=== PATIENT | male | born 1980 | race Caucasian/White ===

== ENCOUNTER 2019-02-23 17:29 | Emergency (ER) | payer SELFPAY ==
[2019-02-23 17:33] VITALS: BP 157/105; PULSE 94; RESP 14; TEMP 36.6; O2SAT 94
--- NOTE | 2019-02-23 17:54 | W.ED.GENAD ---
Discharge Plan Disposition Patient Disposition: HOME Condition: Improving Discharge Details Chief Complaint: RashLesion Clinical Impression: Folliculitis Primary Care Provider: Candelaria Flowers ED Provider: Mariano Badillo Home Meds and New Rx's Prescriptions: New cephalexin 500 mg capsule 500 mg PO TID 7 Days Qty: 21 RF: 0 Continued lisinopril 5 MG tablet 5 mg PO DAILY RF: 0 metformin 500 MG tablet extended release 24 hr 500 mg PO BID RF: 0 acetaminophen [Tylenol Extra Strength] 500 mg Tablet 500 mg PO Q6H PRNRF: 0 ibuprofen 200 mg Tablet 800 mg PO QID PRNRF: 0 Discharge Instructions Instructions: Folliculitis (ED) Additional Instructions: Leave dressing in place overnight as tolerated. May use gentle soap and water cleanse in the morning and pat dry. Please take antibiotics as prescribed. May apply warm, moist heat to area to speed healing. Return for recurrent swelling, persistent drainage, or any other acute concerns Medical Decision Making 38-year-old male with diabetic presents with left superior scalp swelling with drainage that has been going on for 2 days time. He manipulated it at home. Unclear if this is a partially resolved sebaceous cyst versus a folliculitis with abscess. Patient consented as to risks and benefits of incision and drainage, prepped and draped in standard sterile fashion, anesthetized and incised with an 11 blade with production of 1.5 cc of purulent fluid. We will place him on a course of antibiotics given his diabetes. He understands homecare as well as return precautions. HPI General Mode of arrival: ambulatory. Date/Time Provider Initiated Documentation: 02/23/19 17:31. Limitations to Documentation: no limitations. Information obtained by: patient. History of Present Illness 38 year old M presents to the emergency department with the chief complaint of Left superior scalp infection with drainage, described as mild, Quality is described as aching and constant, and is localized to the head and left. Patient neck. Patient started experiencing this day(s) and it has been intermittent. No relieving factors improve symptom(s), No exacerbating factors reported . Patient notes other (Purulent drainage. Manipulated at home by pain). Patient did receive the following treatments prior to arrival, none Related Data Home Medications Medication Instructions Recorded Confirmed lisinopril 5 mg PO DAILY 04/02/16 02/23/19 metformin 500 mg PO BID 08/12/16 02/23/19 acetaminophen [Tylenol Extra 500 mg PO Q6H PRN 02/23/19 02/23/19 Strength] cephalexin 500 mg PO TID 7 Days #21 cap 02/23/19 ibuprofen 800 mg PO QID PRN 02/23/19 02/23/19 Previous Rx's Medication Instructions Recorded cephalexin 500 mg PO TID 7 Days #21 cap 02/23/19 Allergies Allergy/AdvReac Type Severity Reaction Status Date / Time No Known Allergies Allergy Unverified 02/23/19 17:37 General Stated Complaint: RashLesion MOHAMUD: 5 Review of Systems Review of Systems No headache, no fall. No change to medications. 6 systems reviewed and otherwise negative [facility] Social History Smoking/Tobacco Use Status: Never Drug use: Never Do you feel safe at home: Yes Do you feel safe in your relationship?: Yes Exam Narrative Exam Narrative: GEN: awake, alert, oriented 3. Pleasant, well groomed, interactive. HEAD: Normocephalic, atraumatic. The left superior inferior portion of the posterior scalp has a approximately 1 cm square area of raised fluctuant erythema with minimal drainage. ENT: Mucous membranes moist, oropharynx unremarkable, External ear exam unremarkable EYES: PERRL, EOMI NECK: Full ROM, no AMILCAR, no menigismus EXT: Full ROM, no edema, no rash Neuro: Grossly normal neurologic exam, conversant, interactive. Psych: Speech fluent, thoughts congruent, affect normal Course Vital Signs Temperature 36.6 C 02/23/19 17:33 Pulse 94 H 02/23/19 17:33 Respiratory Rate 14 02/23/19 17:33 Blood Pressure 157/105 H 02/23/19 17:33 Pulse Oximetry 94 L 02/23/19 17:33 Temperature 36.6 C 02/23/19 17:33 Pulse 94 H 02/23/19 17:33 Respiratory Rate 14 02/23/19 17:33 Respiratory Effort Non-Labored 02/23/19 17:36 Blood Pressure 157/105 H 02/23/19 17:33 Blood Pressure Position Sitting 02/23/19 17:33 Pulse Oximetry 94 L 02/23/19 17:33 Oxygen Delivery Method Room Air 02/23/19 17:33 Oxygen Flow Rate 0 02/23/19 17:33 Pain Level 3 02/23/19 17:33 Procedures Abscess I/D Site: Scalp Side (if applicable): Left Local Anesthetic: Lidocaine 1% Amount of anesthesia used (mL): 2 Technique: Incised with #11 Blade Amount of fluid expressed (mL): 1 Irrigation: Yes Packing used?: None
--- NOTE | 2019-02-23 17:58 | ED.GENADUL_ITS ---
Discharge Plan Disposition Patient Disposition: HOME Condition: Improving Discharge Details Chief Complaint: RashLesion Clinical Impression: Folliculitis Primary Care Provider: Candelaria Floewrs ED Provider: Mariano Badillo Home Meds and New Rx's Prescriptions: New cephalexin 500 mg capsule 500 mg PO TID 7 Days Qty: 21 RF: 0 Continued lisinopril 5 MG tablet 5 mg PO DAILY RF: 0 metformin 500 MG tablet extended release 24 hr 500 mg PO BID RF: 0 acetaminophen [Tylenol Extra Strength] 500 mg Tablet 500 mg PO Q6H PRNRF: 0 ibuprofen 200 mg Tablet 800 mg PO QID PRNRF: 0 Discharge Instructions Instructions: Folliculitis (ED) Additional Instructions: Leave dressing in place overnight as tolerated. May use gentle soap and water cleanse in the morning and pat dry. Please take antibiotics as prescribed. May apply warm, moist heat to area to speed healing. Return for recurrent swelling, persistent drainage, or any other acute concerns Medical Decision Making 38-year-old male with diabetic presents with left superior scalp swelling with drainage that has been going on for 2 days time. He manipulated it at home. Unclear if this is a partially resolved sebaceous cyst versus a folliculitis with abscess. Patient consented as to risks and benefits of incision and drainage, prepped and draped in standard sterile fashion, anesthetized and incis ed with an 11 blade with production of 1.5 cc of purulent fluid. We will place him on a course of antibiotics given his diabetes. He understands homecare as well as return precautions. HPI General Mode of arrival: ambulatory . Date/Time Provider Initiated Documentation: 02/23/19 17:31 . Limitations to Documentation: no limitations . Information obtained by: patient . History of Present Illness 38 year old M presents to the emergency department with the chief complaint of Left superior scalp infection with drainage, described as mild, Quality is described as aching and constant, and is localized to the head and left. Patient neck. Patient started experiencing this day(s) and it has been intermittent. No relieving factors improve symptom(s), No exacerbating factors reported . Patient notes other (Purulent drainage. Manipulated at home by pain). Patient did receive the following treatments prior to arrival, none Related Data Home Medications Medication Instructions Recorded Confirmed lisinopril 5 mg PO DAILY 04/02/16 02/23/19 metformin 500 mg PO BID 08/12/16 02/23/19 acetaminophen [Tylenol Extra 500 mg PO Q6H PRN 02/23/19 02/23/19 Strength] cephalexin 500 mg PO TID 7 Days #21 cap 02/23/19 ibuprofen 800 mg PO QID PRN 02/23/19 02/23/19 Previous Rx's Medication Instructions Recorded cephalexin 500 mg PO TID 7 Days #21 cap 02/23/19 Allergies Allergy/AdvReac Type Severity Reaction Status Date / Time No Known Allergies Allergy Unverified 02/23/19 17:37 General Stated Complaint: RashLesion MOHAMUD: 5 Review of Systems Review of Systems No headache, no fall. No change to medications. 6 systems reviewed and otherwise negative [facility] Social History Smoking/Tobacco Use Status: Never Drug use: Never Do you feel safe at home: Yes Do you feel safe in your relationship?: Yes Exam Narrative Exam Narrative: GEN: awake, alert, oriented 3. Pleasant, well groomed, interactive. HEAD: Normocephalic, atraumatic. The left superior inferior portion of the posterior scalp has a approximately 1 cm square area of raised fluctuant erythema with minimal drainage. ENT: Mucous membranes moist, oropharynx unremarkable, External ear exam unremarkable EYES: PERRL, EOMI NECK: Full ROM, no AMILCAR, no menigismus EXT: Full ROM, no edema, no rash Neuro: Grossly normal neurologic exam, conversant, interactive. Psych: Speech fluent, thoughts congruent, affect normal Course Vital Signs Temperature 36.6 C 02/23/19 17:33 Pulse 94 H 02/23/19 17:33 Respiratory Rate 14 02/23/19 17:33 Blood Pressure 157/105 H 02/23/19 17:33 Pulse Oximetry 94 L 02/23/19 17:33 Temperature 36.6 C 02/23/19 17:33 Pulse 94 H 02/23/19 17:33 Respiratory Rate 14 02/23/19 17:33 Respiratory Effort Non-Labored 02/23/19 17:36 Blood Pressure 157/105 H 02/23/19 17:33 Blood Pressure Position Sitting 02/23/19 17:33 Pulse Oximetry 94 L 02/23/19 17:33 Oxygen Delivery Method Room Air 02/23/19 17:33 Oxygen Flow Rate 0 02/23/19 17:33 Pain Level 3 02/23/19 17:33 Procedures Abscess I/D Site: Scalp Side (if applicable): Left Local Anesthetic: Lidocaine 1% Amount of anesthesia used (mL): 2 Technique: Incised with #11 Blade Amount of fluid expressed (mL): 1 Irrigation: Yes Packing used?: None
== END 2019-02-23 18:03 | disposition home or self-care (01) ==
LOC: ER 18:05
PROVIDERS: Emergency Provider Emergency Medicine; PCP Nurse Practitioner Family
DX: L73.9 Follicular disorder, unspecified (principal); E11.9 Type 2 diabetes mellitus without complications; Z79.84 Long term (current) use of oral hypoglycemic drugs
CPT/HCPCS: 99283

== ENCOUNTER 2019-09-10 09:03 | Outpatient (REF) | payer BC, SELFPAY ==
[2019-09-10 13:19] LABS: Abs Immature Grans 0.01 k/cumm (0.0-0.09); Absolute Basophil Count 0.02 k/cumm (0.0-0.2); Absolute Eosinophil Count 0.09 k/cumm (0.0-0.7); Absolute Lymphocyte Count 2.68 k/cumm (1.2-3.4); Absolute Monocyte Count 0.66 k/cumm (0.11-0.7); Absolute Neutrophil Count 3.15 k/cumm (1.2-6.7); Basophils % 0.3; Eosinophils % 1.4; HCT 44.1 % (40.0-50.0); HGB 15.2 g/dL (13.5-17.5); Immature Grans % 0.2; Lymphocytes % 40.5; Mean Corp. HGB Concentration 34.5 g/dL (32.0-36.0); Mean Corpuscular Volume 84.2 fL (80-95); Mean Platelet Volume 10.9 fL (8.0-11.0); Neutrophils % 47.6; Platelet Count 243 x1000/uL (130-400); RBC 5.24 m/cumm (4.50-6.00); RBC Distribution Width 12.5 % (11.8-14.1); White Blood Cell Count 6.61 k/cumm (4.4-10.8)
[2019-09-10 13:33] LABS: ALT 70 U/L (16-63); AST 25 U/L (15-37); Albumin 3.5 g/dL (3.4-5.0); Alkaline Phosphatase 212 U/L (46-116); Anion Gap 9.2 mmol/L (3-11); BUN 13 mg/dL (7-18); Bilirubin, Total 0.4 mg/dL (0.2-1.0); CO2 26.8 mmol/L (21.0-32.0); CREATININE 0.67 mg/dL (0.70-1.30); Calcium 9.2 mg/dL (8.5-10.1); Chloride 103 mmol/L (98-107); Cholesterol 224 mg/dL (50-200); Glucose 329 mg/dL (70-100); HDL Cholesterol 33 mg/dL (40-60); Potassium 4.7 mmol/L (3.5-5.1); Sodium 139 mmol/L (136-145); Total Protein 7.6 g/dL (6.4-8.2); Triglyceride 443 mg/dL (30-150)
[2019-09-10 13:57] LABS: LDL CHOLESTEROL 230 mg/dL (<100)
[2019-09-10 14:21] LABS: PROTEIN 20.7 mg/dL
[2019-09-10 14:24] LABS: Microalb ug/mg Crea 329.7 ug/mg Cr
[2019-09-10 14:35] LABS: COMMENT (LAB VIEW ONLY) 34.59 mg/dL; Prot/Crea Ur Ratio 0.59
== END 2019-09-10 09:23 ==
LOC: NCHCN 09:03
PROVIDERS: PCP Nurse Practitioner Family; Visit Provider Nurse Practitioner Family
DX: E11.9 Type 2 diabetes mellitus without complications (principal); I10 Essential (primary) hypertension; S01.00XA Unspecified open wound of scalp, initial encounter
CPT/HCPCS: 80053; 80061; 83721; 87077; 82043; 82565; 82570; 84156; 85025; 87070; 87186; 87205

== ENCOUNTER 2019-10-11 08:22 | Emergency (ER) | payer BC, SELFPAY ==
[2019-10-11 08:24] VITALS: BP 140/94; PULSE 92; RESP 18; TEMP 36.4; O2SAT 95
--- NOTE | 2019-10-11 09:21 | W.ED.GENAD ---
Discharge Plan Disposition Patient Disposition: HOME Condition: Stable Discharge Details Chief Complaint: Nk/Back Pain Clinical Impression: Neck pain Primary Care Provider: Augusto Pillai ED Provider: Sarita Ross Home Meds and New Rx's Prescriptions: Continued lisinopril 5 MG tablet 5 mg PO DAILY RF: 0 metformin 500 MG tablet extended release 24 hr 500 mg PO BID RF: 0 atorvastatin [Lipitor] 80 mg Tablet 80 mg PO QHS RF: 0 Lantus U-100 Insulin 100 unit/mL Solution 42 unit SUBCUT QHS RF: 0 acetaminophen [Tylenol Extra Strength] 500 mg Tablet 500 mg PO Q6H PRNRF: 0 ibuprofen 200 mg Tablet 800 mg PO QID PRNRF: 0 Discharge Instructions Instructions: Lymphadenopathy (ED), Adenitis (ED), Neck Pain (ED) Additional Instructions: Please return to the emergency department if you develop any new or worsening symptoms or if you become otherwise concerned. It is extremely important that you call as soon as possible to make an appointment to be seen in follow-up for this visit by your primary care doctor. Referrals: Augusto Pillai, CHIEF INVESTIGATOR [Primary Care Provider] - Discharge Data Discharge Date/Time-TO BE ENTERED AT DEPARTURE: 10/11/19 09:59 Medical Decision Making Ryan Pérez is a 39-year-old man with history of hypertension, insulin dependent diabetes who presented to the emergency department with painful area of his neck since yesterday. On exam patient is well and nontoxic-appearing with well-circumscribed 2 x 2 centimeter mass to his left anterior neck. [id number] bedside ultrasound shows likely lymph node, no fluid collection. Exam/history is not consistent with abscess, impending airway compromise, life-threatening metabolic/electrolyte derangement, other acute emergent life-threatening process. We obtained a fingerstick blood sugar level of 250, which patient reports has been his typical blood sugar over the past month. Unclear etiology of enlarged lymph node. Plan for outpatient follow-up. I had a lengthy discussion with the patient regarding return to emergency department precautions, home care, and importance of outpatient follow-up with his primary care doctor. Patient verbalized understanding of the plan and was amenable. All questions were answered. Patient was discharged home with clear plan for outpatient follow-up. Medical Records Medical records reviewed: Yes I reviewed the patient's medical records. Lab Data Lab results reviewed: Yes I reviewed the patient's lab results. HPI General Mode of arrival: ambulatory. Date/Time Provider Initiated Documentation: 10/11/19 09:21. Limitations to Documentation: no limitations. Information obtained by: patient, RN notes reviewed and old records reviewed. HPI Narrative: Ryan Pérez is a 39 y/o man with history of insulin dependent diabetes, hypertension presenting to the emergency department with anterior neck pain. Patient reports that he noticed yesterday morning that the left lower front area of his neck was painful when he held his neck in certain positions. 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 Patient denies any other pain, fevers, cough, shortness of breath, vomiting, diarrhea, rash. Feels otherwise well in his usual state of health. No difficulty or pain with swallowing. Has been eating and drinking as usual. No other recent illness. Denies any exposure to cats/kittens in the past few months. Related Data Home Medications Medication Instructions Recorded Confirmed lisinopril 5 mg PO DAILY 04/02/16 10/11/19 metformin 500 mg PO BID 08/12/16 10/11/19 acetaminophen [Tylenol Extra 500 mg PO Q6H PRN 02/23/19 10/11/19 Strength] ibuprofen 800 mg PO QID PRN 02/23/19 10/11/19 Lantus U-100 Insulin 42 unit SUBCUT QHS 10/11/19 10/11/19 atorvastatin [Lipitor] 80 mg PO QHS 10/11/19 10/11/19 Allergies Allergy/AdvReac Type Severity Reaction Status Date / Time No Known Allergies Allergy Unverified 10/11/19 08:28 General Stated Complaint: Nk/Back Pain MOHAMUD: 4 Review of Systems Narrative: Constitutional: denies fevers Eyes: denies eye pain ENT: denies facial pain, dental pain, sore throat, difficulty swallowing, painful swallowing, reports neck pain as per HPI Cardiovascular: denies chest pain Respiratory: denies SOB, cough GI: denies abdominal pain, vomiting, diarrhea : denies flank pain MSK: denies back pain, arthralgias, myalgias Skin: denies rash Neuro: denies headaches, numbness, weakness [facility] Medical History Diabetes (Chronic) High blood pressure (Chronic) High cholesterol (Chronic) Social History Smoking/Tobacco Use Status: Never Alcohol Intake: never Drug use: Never Substance use type: does not use Do you feel safe at home: Yes Do you feel safe in your relationship?: Yes Exam Narrative Exam Narrative: Constitutional: well and [id number], pleasant, conversing normally HENT: head atraumatic/normocephalic/normal inspection, mucous membranes moist, clear oropharynx, no OP lesion or edema, uvula midline Eyes: conjunctiva normal, sclera normal, pupils 3mm b/l Neck: no stridor, normal ROM, trachea midline, normal inspection of the neck, mild fullness and tenderness to palpation focally in 2 x 2 centimeter area lower mid anterior neck, approximately 2 cm superior to the clavicle, no overlying skin changes, no fluctuance, no crepitus, no supraclavicular lymphadenopathy, no other lymphadenopathy of the anterior or posterior neck Resp: normal work of breathing, LCTAB Cardio: normal rate, normal rhythm, no murmur appreciated GI: abdomen soft, non-tender, non-distended Back: normal inspection, no rash Skin: warm, dry, normal color, no rash Neuro: alert, not altered, grossly non-focal, normal tone Ext: no edema Psych: normal mood, normal affect, normal behavior Course Vital Signs Vital signs: Vital Signs Temperature 36.4 C L 10/11/19 08:24 Pulse 92 H 10/11/19 08:24 Respiratory Rate 18 10/11/19 08:24 Blood Pressure 140/94 H 10/11/19 08:24 Pulse Oximetry 95 10/11/19 08:24 Temperature 36.4 C L 10/11/19 08:24 Temperature Source Skin 10/11/19 08:24 Pulse 92 H 10/11/19 08:24 Respiratory Rate 18 10/11/19 08:24 Respiratory Effort Non-Labored 10/11/19 08:31 Blood Pressure 140/94 H 10/11/19 08:24 Blood Pressure Position Sitting 10/11/19 08:24 Pulse Oximetry 95 10/11/19 08:24 Oxygen Delivery Method Room Air 10/11/19 08:24 Oxygen Flow Rate 0 10/11/19 08:24 Pain Level 3 10/11/19 08:35 Comment 10/11/19 08:24
== END 2019-10-11 09:59 | disposition home or self-care (01) ==
PROVIDERS: Emergency Provider Student in an Organized Health Care Education/Training Program; PCP Nurse Practitioner Family
DX: M54.2 Cervicalgia (principal); R59.0 Localized enlarged lymph nodes; E11.9 Type 2 diabetes mellitus without complications; Z79.4 Long term (current) use of insulin; I10 Essential (primary) hypertension
CPT/HCPCS: 36416; 82962; 99282; 99283

== ENCOUNTER 2020-08-10 12:18 | Outpatient (REF) | payer MEDICAID, SELFPAY ==
[2020-08-10 19:00] LABS: Anion Gap 8.8 mmol/L (3-11); BUN 17 mg/dL (7-18); CO2 26.2 mmol/L (21.0-32.0); CREATININE 0.73 mg/dL (0.70-1.30); Calcium 9.1 mg/dL (8.5-10.1); Calculated LDL 63 mg/dL (<100); Chloride 103 mmol/L (98-107); Cholesterol 126 mg/dL (<200); Glucose 285 mg/dL (74-106); HDL Cholesterol 35 mg/dL (40-60); Potassium 4.7 mmol/L (3.5-5.1); Sodium 138 mmol/L (136-145); Triglyceride 142 mg/dL (<150)
[2020-08-10 19:05] LABS: COMMENT (LAB VIEW ONLY) 245.22 mg/dL
[2020-08-10 19:19] LABS: Microalb ug/mg Crea 77.8 ug/mg Cr
== END 2020-08-10 12:38 ==
LOC: NCHCN 12:18
PROVIDERS: PCP Nurse Practitioner Family; Visit Provider Nurse Practitioner Family
DX: I10 Essential (primary) hypertension (principal); E11.9 Type 2 diabetes mellitus without complications; E78.6 Lipoprotein deficiency
CPT/HCPCS: 80048; 80061; 82043; 82570

== ENCOUNTER 2020-09-14 10:44 | Outpatient (REF) | payer MEDICAID, SELFPAY | END 2020-09-14 11:04 | LOC: NCHCN 10:44 | PROVIDERS: PCP Nurse Practitioner Family; Visit Provider Nurse Practitioner Family | DX: L98.9 Disorder of the skin and subcutaneous tissue, unspecified (principal) | CPT/HCPCS: 87077; 87070; 87186; 87205 ==

== ENCOUNTER 2021-08-31 07:52 | Emergency (ER) | payer MEDICAID, SELFPAY ==
[2021-08-31 07:55] VITALS: BP 164/107; PULSE 94; RESP 18; TEMP 36; O2SAT 96
--- NOTE | 2021-08-31 08:20 | NUR.NOTE ---
Nursing Note: Referral faxed to [facility] for follow up of pre septal cellulitis, diabetes poorly controlled, within 1 week. Ashlie Urbano
--- NOTE | 2021-08-31 08:24 | W.ED.GENAD ---
Discharge Plan Disposition Patient Disposition: HOME Condition: Stable Discharge Details Clinical Impression: Hordeolum, Cellulitis Primary Care Provider: Augusto Pillai ED Provider: Mitra Marsh Home Meds and New Rx's Prescriptions: New cephalexin 500 mg capsule 500 mg PO Q6H 10 Days Qty: 40 RF: 0 Continued lisinopril 5 MG tablet 5 mg PO DAILY RF: 0 metformin 500 MG tablet extended release 24 hr 500 mg PO BID RF: 0 atorvastatin [Lipitor] 80 mg Tablet 80 mg PO QHS RF: 0 Lantus U-100 Insulin 100 unit/mL Solution 42 unit SUBCUT QHS RF: 0 acetaminophen [Tylenol Extra Strength] 500 mg Tablet 500 mg PO Q6H PRNRF: 0 ibuprofen 200 mg Tablet 800 mg PO QID PRNRF: 0 Discharge Instructions Instructions: Cellulitis (ED), Stye (ED) Additional Instructions: Watch your diet for the next several days and check your blood sugar at least once daily Your blood sugar was 243 here, please watch your diet and continue using your long-acting insulin may be have a discussion regarding increasing the dosing of your insulin versus adding on short acting at their discretion You will be contacted regarding an appointment, if you do not hear back at the beginning of next week, call your doctor's office as you are still patient with this group Warm compresses, every hour for 5 to 10 minutes Light massage Take antibiotic, yogurt daily until antibiotic completed Return earlier if spreading redness, fever, worsening pain, pain with eye movement Please also have your blood pressure rechecked by your primary care physician you should be evaluated next week regarding your diabetes and blood pressure control Medical Decision Making Patient appears well but does have a suspected preseptal cellulitis in addition to a presents for Started on Keflex History of diabetes, blood sugar 243, TAB an established physician group has not followed up with physician in the past 2 years Taking standard dose of nightly insulin, 62 units We will likely need reassessment Blood pressure elevated, will need reassessment regarding this We will continue on all prescribed medications at this time, patient is also on lisinopril and atorvastatin Given the threshold to return should he have new or worsening complaints You will need close outpatient follow-up, care management is notified so he may be able to be reevaluated next week Also be referred to [facility] eye care He is instructed to return immediately should he have evidence of orbital cellulitis or retro-orbital abscess, these signs and symptoms were discussed the patient expressed understanding Discharged home in stable condition Lab Data Lab results reviewed: Yes I reviewed the patient's lab results. HPI General Mode of arrival: ambulatory. Date/Time Provider Initiated Documentation: 08/31/21 08:10. Limitations to Documentation: no limitations. Information obtained by: patient. HPI Narrative: This 41-year-old male with history of diabetes, hypertension, hyperlipidemia presents with report of redness and swelling to his right lower leg which started on Friday. History of blepharitis with the same site. Denies any vision change or pain with eye movements. States that started draining after warm compresses last evening. States there is a painful lump below his lid. Denies any fever or chills. Denies any chest pain or shortness of breath. Denies any dizziness or weakness. Denies any trauma to the affected area. Blood sugar yesterday was 200 which is patient to call readings for patient. He is on long-acting insulin only. Related Data Home Medications Medication Instructions Recorded Confirmed lisinopril 5 mg PO DAILY 04/02/16 08/31/21 metformin 500 mg PO BID 08/12/16 08/31/21 acetaminophen [Tylenol Extra 500 mg PO Q6H PRN 02/23/19 08/31/21 Strength] ibuprofen 800 mg PO QID PRN 02/23/19 08/31/21 Lantus U-100 Insulin 42 unit SUBCUT QHS 10/11/19 08/31/21 atorvastatin [Lipitor] 80 mg PO QHS 10/11/19 08/31/21 cephalexin 500 mg PO Q6H 10 Days #40 cap 08/31/21 Previous Rx's Medication Instructions Recorded cephalexin 500 mg PO Q6H 10 Days #40 cap 08/31/21 Allergies Allergy/AdvReac Type Severity Reaction Status Date / Time No Known Allergies Allergy Unverified 08/31/21 07:58 General Stated Complaint: EyeProblem MOHAMUD: 4 Review of Systems All systems reviewed & are unremarkable except as noted in HPI and below PFSH Medical History (Updated 08/31/21 @ 08:23 by RYDER Tran) Diabetes High blood pressure High cholesterol Social History Smoking/Tobacco Use Status: Never Smoking risk assessment performed?: Yes Alcohol Intake: never Drug use: Never Substance use type: does not use Do you feel safe at home: Yes Do you feel safe in your relationship?: Yes Exam Const General: cooperative, comfortable and no acute distress [facility] Head images: 1. 3 mm area of swelling and induration, drainage from upper lid Erythema lower lid, no diminished extraocular movement, no proptosis, no evidence of periorbital cellulitis Eyes Pupils: PERRL EOM: EOM intact bilaterally Resp Effort & Inspection: normal respiratory effort Cardio Rate: regular rate Neuro General: patient alert and patient oriented x3 Psych Appearance: grossly normal and well kempt Course Vital Signs Vital signs: Vital Signs Temperature 36.0 C L 08/31/21 07:55 Pulse 94 H 08/31/21 07:55 Respiratory Rate 18 08/31/21 07:55 Blood Pressure 164/107 H 08/31/21 07:55 Pulse Oximetry 96 08/31/21 07:55 Temperature 36.0 C L 08/31/21 07:55 Temperature Source Skin 08/31/21 07:55 Pulse 94 H 08/31/21 07:55 Respiratory Rate 18 08/31/21 07:55 Respiratory Effort Non-Labored 08/31/21 07:59 Blood Pressure 164/107 H 08/31/21 07:55 Pulse Oximetry 96 08/31/21 07:55 Pain Level 3 08/31/21 07:55
== END 2021-08-31 08:30 | disposition home or self-care (01) ==
PROVIDERS: Emergency Provider Physician Assistant; PCP Nurse Practitioner Family
DX: H00.011 Hordeolum externum right upper eyelid (principal); H00.032 Abscess of right lower eyelid; E11.65 Type 2 diabetes mellitus with hyperglycemia
CPT/HCPCS: 36416; 82962; 99283

== ENCOUNTER 2021-10-12 16:16 | Emergency (ER) | payer MEDICAID, SELFPAY ==
[2021-10-12 16:19] VITALS: BP 160/105; PULSE 85; RESP 18; TEMP 35.4; O2SAT 98
--- NOTE | 2021-10-12 17:11 | ED.GENADUL_ITS ---
Discharge Plan Disposition Patient Disposition: HOME Condition: Stable Discharge Details Clinical Impression: Pain, dental Primary Care Provider: Augusto Pillai ED Provider: Mitra Marsh Home Meds and New Rx's Prescriptions: New penicillin V potassium 500 mg tablet 500 mg PO QID Qty: 36 RF: 0 Continued lisinopril 5 MG tablet 5 mg PO DAILY RF: 0 metformin 500 MG tablet extended release 24 hr 500 mg PO BID RF: 0 atorvastatin [Lipitor] 80 mg Tablet 80 mg PO QHS RF: 0 Lantus U-100 Insulin 100 unit/mL Solution 42 unit SUBCUT QHS RF: 0 acetaminophen [Tylenol Extra Strength] 500 mg Tablet 500 mg PO Q6H PRNRF: 0 ibuprofen 200 mg Tablet 800 mg PO QID PRNRF: 0 Discharge Instructions Instructions: Toothache (ED) Additional Instructions: Stay away from extremes of temperature as this can dramatically worsen your pain Use caution taking ibuprofen as you are on lisinopril and can cause kidney failure You should not take more than 600 mg every 8 hours with food for no longer than 3 days in a row You may take Tylenol 650 mg every 4 hours I have given you a small bottle of codeine, this medication is highly addictive and you should not operate your vehicle for 8 hours after taking this medication, use it very sparingly Take the antibiotic prescribed, yogurt daily while on antibiotic Follow-up with your dentist on Friday and return earlier should you have new or worsening complaints Discharge Data Discharge Date/Time-TO BE ENTERED AT DEPARTURE: 10/12/21 17:41 Medical Decision Making Patient appears well, he has been discomfort He is requesting a dental block He tolerated procedure without incident Placed on penicillin We will follow up with dentist on Friday no evidence of ludwigs angina syndrome, no evidence of deep space infection Medical Records Medical records reviewed: Yes I reviewed the patient's medical records. Lab Data Lab results reviewed: Yes I reviewed the patient's lab results. HPI General Mode of arrival: ambulatory . Date/Time Provider Initiated Documentation: 10/12/21 16:32 . Limitations to Documentation: no limitations . Information obtained by: patient . HPI Narrative: This 39-year-old gentleman presents with right upper dental pain. Denies any fever or chills. Denies any chest pain or shortness of breath. Denies any dizziness or weakness. Blood sugars have been stable per patient. Related Data Home Medications Medication Instructions Recorded Confirmed lisinopril 5 mg PO DAILY 04/02/16 10/12/21 metformin 500 mg PO BID 08/12/16 10/12/21 acetaminophen [Tylenol Extra 500 mg PO Q6H PRN 02/23/19 10/12/21 Strength] ibuprofen 800 mg PO QID PRN 02/23/19 10/12/21 Lantus U-100 Insulin 42 unit SUBCUT QHS 10/11/19 10/12/21 atorvastatin [Lipitor] 80 mg PO QHS 10/11/19 10/12/21 penicillin V potassium 500 mg PO QID #36 tab 10/12/21 Previous Rx's Medication Instructions Recorded penicillin V potassium 500 mg PO QID #36 tab 10/12/21 Allergies Allergy/AdvReac Type Severity Reaction Status Date / Time No Known Allergies Allergy Unverified 10/12/21 16:22 General Stated Complaint: DentalOral MOHAMUD: 5 Review of Systems All systems reviewed & are unremarkable except as noted in HPI and below PFSH Active Problem List (Updated 10/12/21 @ 17:13 by RYDER Tran) Hordeolum (Acute) Cellulitis (Acute) Pain, dental (Acute) Medical History (Updated 10/12/21 @ 17:13 by RYDER Tran) Diabetes High blood pressure High cholesterol Social History Smoking/Tobacco Use Status: Never Smoking risk assessment performed?: Yes Alcohol Intake: never Drug use: Never Substance use type: does not use Do you feel safe at home: Yes Do you feel safe in your relationship?: Yes Exam Const General: cooperative, comfortable and no acute distress Orientation: alert and oriented x3 HENMT Head: normal to inspection Mouth: oral mucosae normal Teeth image: 1. No fracture, swelling, fluctuance, or evidence of deep space infection 2. Throat: uvula midline Other: No trismus Eyes Pupils: PERRL Neck Other: no stridor Resp Effort & Inspection: normal respiratory effort Cardio Rate: regular rate Neuro General: patient alert Course Vital Signs Vital signs: Vital Signs Temperature 35.4 C L 10/12/21 16:19 Pulse 85 10/12/21 16:19 Respiratory Rate 18 10/12/21 16:19 Blood Pressure 160/105 H 10/12/21 16:19 Pulse Oximetry 98 10/12/21 16:19 Temperature 35.4 C L 10/12/21 16:19 Temperature Source Skin 10/12/21 16:19 Pulse 85 10/12/21 16:19 Respiratory Rate 18 10/12/21 16:19 Respiratory Effort Non-Labored 10/12/21 16:23 Blood Pressure 160/105 H 10/12/21 16:19 Pulse Oximetry 98 10/12/21 16:19 Pain Level 7 10/12/21 16:19 Procedures Nerve Block Nerve Block 1: Local Anesthetic: Bupivicaine 0.5% Intraoral Nerve Block: other Procedure Successful: Yes Patient Tolerated Procedure: well Complications: none
[2021-10-12] MEDS: Penicillin V POTASSIUM 500 MG TAB, 4 TABS/BTL PO (17:19)
[2021-10-12] MEDS: Bupivacaine 0.5% Pres-Free 30 ML VIAL (17:25)
== END 2021-10-12 17:41 | disposition home or self-care (01) ==
PROVIDERS: Emergency Provider Physician Assistant; PCP Nurse Practitioner Family
DX: K08.89 Other specified disorders of teeth and supporting structures (principal)
CPT/HCPCS: 64400

== ENCOUNTER 2021-12-17 14:55 | Outpatient (REF) | payer MEDICAID, SELFPAY ==
[2021-12-17 15:12] LABS: Hemoglobin A1C 11.2 % (<5.7)
[2021-12-17 15:22] LABS: COMMENT (LAB VIEW ONLY) 126.91 mg/dL; Microalb ug/mg Crea 64.5 ug/mg Cr
[2021-12-17 15:24] LABS: ALT 41 U/L (16-63); AST 21 U/L (15-37); Albumin 3.4 g/dL (3.4-5.0); Alkaline Phosphatase 163 U/L (46-116); Anion Gap 11.3 mmol/L (3-11); BUN 19 mg/dL (7-18); Bilirubin, Total 0.4 mg/dL (0.2-1.0); CO2 23.7 mmol/L (21.0-32.0); CREATININE 0.8 mg/dL (0.70-1.30); Calcium 8.6 mg/dL (8.5-10.1); Calculated LDL 33 mg/dL (<100); Chloride 102 mmol/L (98-107); Cholesterol 124 mg/dL (<200); Ferritin 244 ng/mL (26-388); Glucose 341 mg/dL (74-106); HDL Cholesterol 33 mg/dL (40-60); Potassium 4.5 mmol/L (3.5-5.1); Sodium 137 mmol/L (136-145); Triglyceride 291 mg/dL (<150)
== END 2021-12-17 14:56 | disposition home or self-care (01) ==
LOC: NCHCN 14:55
PROVIDERS: PCP Nurse Practitioner Family; Visit Provider Physician Assistant
DX: E11.9 Type 2 diabetes mellitus without complications (principal); I10 Essential (primary) hypertension; E78.5 Hyperlipidemia, unspecified
CPT/HCPCS: 80053; 80061; 82043; 82570; 82728; 83036

== ENCOUNTER 2022-12-13 16:43 | Outpatient (REF) | payer MEDICAID, SELFPAY ==
[2022-12-13 19:03] LABS: COMMENT (LAB VIEW ONLY) 29.13 mg/dL; Microalb ug/mg Crea 136.3 ug/mg Cr
== END 2022-12-13 16:44 | disposition home or self-care (01) ==
LOC: NCHCN 16:43
PROVIDERS: Visit Provider Physician Assistant
DX: E11.9 Type 2 diabetes mellitus without complications (principal)
CPT/HCPCS: 82043; 82570

== ENCOUNTER 2023-03-24 07:48 | Day surgery (SDC) | payer MEDICAID, SELFPAY ==
--- NOTE | 2023-03-24 06:46 | W.ANESPRE ---
General Info Date of Service Date Performed: 03/24/23 Height: 6 ft 1 in Weight: 106.594 kg Body Mass Index (BMI): 30.9 Surgical Procedure: Operation Date: 03/24/23 09:10 Proposed Procedure Side Surgeon p Cataract Extraction with IOL Implant Left Mandeep Evans MD Meds Allergies and Home Medications Allergies Allergy/AdvReac Type Severity Reaction Status Date / Time No Known Allergies Allergy Unverified 03/24/23 08:00 Home Medication Medication Instructions Recorded lisinopril 5 mg tablet 5 mg PO DAILY 04/02/16 metformin 500 mg tablet,extended 500 mg PO BID 08/12/16 release 24 hr acetaminophen 500 mg tablet 500 mg PO Q6H PRN 02/23/19 (Tylenol Extra Strength) ibuprofen 200 mg tablet 800 mg PO QID PRN 02/23/19 atorvastatin 80 mg tablet (Lipitor) 80 mg PO QHS 10/11/19 insulin glargine 100 unit/mL 42 unit subcut QHS 10/11/19 subcutaneous solution (Lantus U-100 Insulin) dulaglutide 1.5 mg/0.5 mL 1.5 mg subcut DIRECTED 03/21/23 subcutaneous pen injector (Trulicity) Current Visit Medications: Current Medications Generic Name Dose Route Start Last Admin Trade Name Freq PRN Reason Stop Dose Admin Acetaminophen 1,000 mg 03/24/23 06:00 Acetaminophen 500 Mg Tab PO Q4H PRN PRN Balanced Salt Solution 500 ml 03/24/23 06:00 Balanced Salt Soln.-Plus 500 Ml Bag OP DIRECTED AYANNA Miscellaneous Medication 0 ml 03/24/23 06:00 Prednisolone 1%, Moxifloxacin 0.5%, Nepafenac 0.1% 5ml Btl OS DIRECTED AYANNA Miscellaneous Medication 0 ml 03/24/23 06:00 Tropicam./Phenyleph. (1/2.5%) 5 Ml Btl OS DIRECTED AYANNA Tetracaine HCl 0 ml 03/24/23 06:00 Tetracaine 0.5% 4 Ml Btl OS DIRECTED AYANNA PFSH Active Problems Active Problems: Problem Status Onset Code Posterior subcapsular age-related cataract of left eye H25.042 Hordeolum H00.019 Cellulitis L03.90 Pain, dental K08.89 Medical History Medical History Diabetes High blood pressure High cholesterol Tobacco Smoking/Tobacco Use Status: Never Alcohol Alcohol Intake: never Substance Use Substance use: Never Substance use type: does not use Vital Signs and Lab Results Lab Results Blood Type / Crossmatch: No Data to Display Complete Blood Count: No Data to Display Complete Metabolic Panel: No Data to Display Liver Function Panel: No Data to Display Coagulation Panel: No Data to Display Cardiac Panel: No Data to Display Arterial Blood Gas: No Data to Display Venous Blood Gas: No Data to Display Pancreas Panel: No Data to Display Thyroid Panel: No Data to Display Infectious Disease: No Data to Display Blood Cultures: No Data to Display Toxicology Panel: No Data to Display Anesthesia Assessment and Plan Anesthesia History Personal History: No History of Anesthesia Complications Family History: No Family History of Anesthesia Complications Exercise Tolerance Exercise Tolerance: Metabolic Equivalents>4 Pertinent Negatives Pertinent Negatives: No Symptoms of GERD Cardiac & Pulmonary Exam Cardiac Exam: Normal S1/S2 Heart Sounds Pulmonary Exam: Clear Bilateral Breath Sounds Implantable Cardiac Device Does patient have a Pacemaker or an ICD?: No Airway Exam Known Difficult Airway: No Mallampati Class: 2 Mouth Opening: Normal (> 3cm) Thyromental Distance: Greater than 3 cm Neck Range of Motion: Full ROM Neck Circumference: Normal Teeth Condition: Normal Dentition ASA Classification ASA Score: ASA 2 Emergency Case?: No NPO Status NPO Status: NPO Clears >2 hours, Solids >8 hours Anesthesia Plan Resuscitation Status: Full Code Anesthesia Technique: MAC Anesthesia Airway Planned: Natural Airway Monitors Used: Standard Monitors Preoperative Comments:: Discussed elevated BGL and HgA1c, patient does not want sedation, no MKO. Discussed PIV placement and midazolam as a backup.
[2023-03-24 08:04] VITALS: BP 138/105; PULSE 101; RESP 18; TEMP 36.4; O2SAT 95
[2023-03-24] MEDS: Tropicam./Phenyleph. (1/2.5%) 5 ML BTL OS ×3 (08:04→08:17)
[2023-03-24 08:20] VITALS: BP 136/105
[2023-03-24 08:24] VITALS: BMI 30.9
[2023-03-24] MEDS: Tetracaine 0.5% 4 ML BTL OS (08:57)
[2023-03-24] MEDS: Balanced Salt Soln.-PLUS 500 ML BAG OP (09:07)
[2023-03-24] MEDS: Lidocaine 1% Pres-Free 5 ML VIAL (09:09)
[2023-03-24] MEDS: Duovisc Viscoelastic System EACH 1 EACH (09:09)
[2023-03-24] MEDS: Phenylephrine/Lidocaine (15/10) MG/ML 1 ML VIAL (09:11)
[2023-03-24] MEDS: Povidone-Iodine Ophth 30 ML BTL (09:11)
[2023-03-24 09:20] VITALS: BP 138/105; PULSE 105; RESP 18; TEMP 36.3; O2SAT 96
--- NOTE | 2023-03-24 09:22 | W.PM.DSUDISC ---
Date of service: 03/24/23 Time of Service: 09:23 Discharge Plan Disposition Patient Disposition: Home Discharge Details Attending Provider: Mandeep Evans Primary Care Provider: Aniceto Mobley Home Meds and New Rx's Prescriptions: No Action lisinopril 5 MG tablet 5 mg PO DAILY Patient Comments: dose unknown metformin 500 MG tablet extended release 24 hr 1,000 mg PO BID atorvastatin [Lipitor] 80 mg Tablet 80 mg PO QHS insulin glargine [Lantus U-100 Insulin] 100 unit/mL Solution 66 unit SUBCUT QHS Trulicity 1.5 mg/0.5 mL pen injector 1.5 mg SUBCUT DIRECTED Patient Comments: Inject 1/2 ml subcutaneously once a week acetaminophen [Tylenol Extra Strength] 500 mg Tablet 500 mg PO Q6H PRN ibuprofen 200 mg Tablet 800 mg PO QID PRN Discharge Instructions Stand Alone Forms: Post-op Topical Cataract, Press Ganey (DSU) Discharge Orders Discharge Orders: Discharge Order (Routine); Ordered 03/24/23 Ordered By: Mandeep Evans DS: Diagnosis Discharge Diagnosis (1) Posterior subcapsular age-related cataract of left eye: Status: Resolved
--- NOTE | 2023-03-24 09:24 | ROE_ITS ---
Date of service: 03/24/23 Time of Service: 09:24 Operative Note Operative Note DATE OF PROCEDURE: 03/24/23 POST-OP DIAGNOSIS: same PROCEDURE: Cataract extraction using phacoemulsification with intraocular lens implant, left eye SURGEON: Mandeep Evans ANESTHESIA TYPE: Local By Surgeon and MAC Refer to Anesthesia Record PATHOLOGY: none sent COMPLICATIONS: None Patient was transported to: same day Patient's condition: stable Implants: Vernon [employer] Vernon Tecnis Eyhance [id number] Indications: Progressive decreased vision due to cataract, left eye Procedure Description: CATARACT SURGERY OPERATIVE REPORT PREOPERATIVE DIAGNOSIS: 1. Posterior subcapsular cataract, left eye POSTOPERATIVE DIAGNOSIS: Same OPERATION: 1. Cataract extraction using phacoemulsification with posterior chamber intraocular lens implant, left eye. IOL: IOL Cyber Security Architect/Model: Vernon & Vernon Tecnis Eyhance DIB00 IOL Power: + 20.5 diopters IOL Serial Number: [id number] Optic Diameter: 6.0 mm Haptic/Overall Diameter: 13.0 mm PHACO INFO: Kyle [employer] Software[employer]ion Vision System with OZil and Active Fluidics Cumulative Dispersed Energy (CDE): 4.59 seconds SURGEON: Mandeep Evans MD, LISA ANESTHESIA: Monitored A [facility] (MAC), with local sub-tenon's anesthetic infiltration COMPLICATIONS: None SPECIMENS: None INDICATIONS FOR PROCEDURE: The patient is a 42-year-old male with history of diminished visual acuity in his left eye secondary to the development of posterior subcapsular cataract. He is significantly symptomatic that he desires cataract surgery and attempt to improve and maximize his vision. See office notes for detailed information. PROCEDURE: The correct surgical eye was identified and marked as the left eye and the pupil was dilated in the preoperative area using mydriatics and cycloplegics. The dilated pupil size was 7.0 mm. The patient elected to proceed without oral sedation. The patient was brought to the operating room where cardiopulmonary monitoring was instituted and surgical time-out was performed, confirming the correct operative eye and IOL power. Topical anesthesia was administered and ophthalmic povidone-iodine 5% was instilled into the conjunctival fornices. The jasmin-ocular area was prepped with Betadine 10% solution and draped in the usual sterile fashion for intraocular surgery, including an aperture drape. A Tegaderm transparent film dressing was cut in half and used to cover the lashes and lid margins. Care was taken to sequester the lashes and lid margins under the Tegaderm dressing. A lid speculum was placed between the lids of the operative eye and the Kyle [employer] Revalia operating microscope was maneuvered into position. Won scissors were then used to make a conjunctival buttonhole approximately 6mm posterior to the limbus in the inferonasal quadrant. Blunt dissection was carried out to expose bare sclera, and a blunt-tipped sub-tenon?s anesthesia cannula was introduced and passed posteriorly along the globe where non- preserved plain lidocaine was injected into posterior sub-Tenon?s space. A sideport knife was used to make a paracentesis port superiorly/superiortemporally. Intraocular phenylephrine/lidocaine was injected int the anterior chamber.. The anterior chamber was filled with viscoelastic. A keratome knife was used to construct a 2-plane near-clear corneal tunnel extending 2.0mm into clear cornea temporally. A flap was raised on the anterior capsule and capsulorhexis forceps were used to complete a continuous curvilinear capsulorhexis of 5.0 mm. Balanced salt solution was then used to perform cortical cleaving hydrodissection and nuclear hydrodelineation until the lens could be freely rotated within the capsular bag. The lens nucleus was then disassembled and removed within the capsular bag and iris plane using phacoemulsification. Residual cortical material was removed using the 45-degree angled silicone I/A tip with 0.3mm port. The posterior capsule was carefully polished to remove as much residual lens epithelial cells as safely possible. The capsular bag was then inflated and the anterior chamber deepened with viscoelastic. The lens implant described above was inserted into the capsular bag using the Vernon and Vernon Simplicity pre-loaded injector. . A Kuglen hook was used to dial the IOL into position. Residual viscoelastic was then removed first from posterior to the IOL, then from the anterior chamber using the I/A handpiece. The lens implant was noted to center nicely within the capsular bag. The incisions were stromally hydrated, and the anterior chamber was reformed using BSS. Then 0.5cc of moxifloxacin 1.0mg/ml were injected into the capsular bag and anterior chamber. The incisions were checked with a Weck spear and found to be secure. Several drops of ophthalmic povidone-iodine 5% were then applied to the eye followed by two drops of Imprimis combination prednisolone/moxifloxacin/nepafenac solution. The drapes were removed and a clear plastic protective eye shield was placed ove r the eye. The patient was then returned to [facility] Day Surgery in stable condition.
[2023-03-24] MEDS: Acetaminophen 500 MG TAB 1000 MG PO (09:33)
--- NOTE | 2023-03-24 09:34 | W.ANESPOSTOP ---
Postoperative Evaluation Date, Time and Location Date Performed: 03/24/23 Time Performed: 09:30 Patient Location: Day Surgery Unit Vital Signs Most Recent Imported Vital Signs: Most Recent Vital Signs Temp Pulse Resp BP Pulse Ox 36.3 C L 101 H 18 136/105 H 95 03/24/23 09:20 03/24/23 08:04 03/24/23 08:04 03/24/23 08:20 03/24/23 08:04 Pain Score Most Recent Pain Score: Most Recent Pain Score Pain Level 0 03/24/23 08:04 Assessment Mental Status: Awake (Alert & Oriented to Patient Baseline) Airway and Respiratory Function: Patent airway with normal (patient baseline) respiratory exam Cardiovascular Function: Hemodynamically Stable Hydration Status: Adequately Hydrated Nausea & Vomiting: No Nausea or Vomiting Pain: Pt. Denies Any Pain Peripheral Nerve Block: Other (Local by Dr. Evans)
== END 2023-03-24 09:40 | disposition home or self-care (01) ==
LOC: SUR 07:48
PROVIDERS: PCP Physician Assistant; Visit Provider Ophthalmology
PROC: (CPT 66984; principal; 2023-03-24 09:00)
DX: H25.042 Posterior subcapsular polar age-related cataract, left eye (principal); I10 Essential (primary) hypertension
CPT/HCPCS: 66984; V2632

== ENCOUNTER 2023-03-28 14:56 | Outpatient (REF) | payer MEDICAID, SELFPAY ==
[2023-04-01 12:26] LABS: HSV 1 DNA Result Positive (Negative); HSV 2 DNA Result Negative (Negative); Varicella Zoster DNA Result Negative ((See Note))
== END 2023-03-28 14:57 | disposition home or self-care (01) ==
LOC: NCHCN 14:56
PROVIDERS: PCP Physician Assistant; Visit Provider Physician Assistant
DX: R21 Rash and other nonspecific skin eruption (principal); Z11.59 Encounter for screening for other viral diseases
CPT/HCPCS: 87529; 87798

== ENCOUNTER 2024-11-22 17:03 | Outpatient (REF) | payer SELFPAY ==
[2024-11-22 16:30] LABS: HCT 46.2 % (40.0-50.0); HGB 15.6 g/dL (13.5-17.5); MCH 28.9 pg (27.0-33.0); MCHC 33.8 % (32.0-36.0); MCV 86 fL (80-95); MPV 10.2 fL (8.0-11.0); Platelet Count 231 10^3/uL (130-400); RDW 12.5 % (11.8-14.1); RDW-SD 38.8 fL; WBC 5.82 10^3/uL (4.4-10.8)
[2024-11-22 17:16] LABS: ALT 30 U/L (16-63); AST 24 U/L (15-37); Albumin 3.4 g/dL (3.4-5.0); Alkaline Phosphatase 159 U/L (46-116); Anion Gap 11.7 mmol/L (3-11); BUN 16 mg/dL (7-18); Bilirubin, Total 0.44 mg/dL (0.2-1.0); CO2 25.3 mmol/L (21.0-32.0); CREATININE 0.8 mg/dL (0.70-1.30); Calcium 9.4 mg/dL (8.5-10.1); Calculated LDL 37 mg/dL (<100); Chloride 106 mmol/L (98-107); Cholesterol 122 mg/dL (<200); Estimated GFR 111.22 (mL/min/1.73m2); Glucose 274 mg/dL (74-106); HDL Cholesterol 39 mg/dL (40-60); Potassium 4.4 mmol/L (3.5-5.1); Sodium 143 mmol/L (136-145); Total Protein 7.2 g/dL (6.4-8.2); Triglyceride 230 mg/dL (<150)
[2024-11-22 17:40] LABS: FREE T4 0.91 ng/dL (0.76-1.46)
== END 2024-11-22 17:04 | disposition home or self-care (01) ==
LOC: NCHCN 17:03
PROVIDERS: PCP Physician Assistant; Visit Provider Physician Assistant
DX: I10 Essential (primary) hypertension (principal); E78.5 Hyperlipidemia, unspecified
CPT/HCPCS: 80053; 80061; 85027; 84439; 84443

== ENCOUNTER 2025-01-07 18:07 | Outpatient (CLI) | payer SELFPAY ==
[2025-01-07 16:56] LABS: Abs Immature Grans 0.02 10^3/uL (0.0-0.06); Absolute Basophil Count 0.05 10^3/uL (0.0-0.2); Absolute Eosinophil Count 0.19 10^3/uL (0.0-0.7); Absolute Lymphocyte Count 3.59 10^3/uL (1.2-3.4); Absolute Monocyte Count 0.91 10^3/uL (0.1-0.8); Absolute Neutrophil Count 3.92 10^3/uL (1.2-6.7); Basophils % 0.6 %; Eosinophils % 2.2 %; HCT 42.2 % (40.0-50.0); Immature Grans % 0.2 %; Lymphocytes % 41.4 %; MCH 28.6 pg (27.0-33.0); MCHC 33.2 % (32.0-36.0); MCV 86 fL (80-95); MPV 9.2 fL (8.0-11.0); Monocytes % 10.5 %; Neutrophils % 45.1 %; Platelet Count 278 10^3/uL (130-400); RBC 4.89 10^6/uL (4.36-5.78); RDW 13.4 % (11.8-14.1); WBC 8.68 10^3/uL (4.4-10.8)
[2025-01-07 16:57] LABS: ESR 16 mm/hr (0-15)
[2025-01-07 17:12] LABS: C-Reactive Protein < 0.50 mg/dL (<or=0.5)
== END 2025-01-07 18:08 | disposition home or self-care (01) ==
LOC: LBO 18:12
PROVIDERS: PCP Physician Assistant; Visit Provider Optometrist
DX: H47.013 Ischemic optic neuropathy, bilateral (principal)
CPT/HCPCS: 36415; 85652; 85025; 86140

== ENCOUNTER 2025-01-20 17:17 | Emergency (ER) | payer OTHER, SELFPAY ==
[2025-01-20 17:23] VITALS: BP 124/75; PULSE 119; RESP 20; TEMP 36.7; O2SAT 92
--- NOTE | 2025-01-20 17:30 | RT.EKG_ITS ---
APPROVED REPORT Exam: Resting ECG Reason for Exam: abdominal pain Patient Location: E HR:107 bpm ECG Measurements Heart Rate 107 AXIS KS 144 P 59 QRSd 77 QRS 115 QT 344 T 159 QTc 460 Conclusion Sinus tachycardia...rate> 99 Right axis deviation...QRS axis (100,269) Abnormal T, consider ischemia, lateral leads...T <-0.20mV, I aVL V5 V6 Sinus tachycardia with abnormal T wave laterally. No prior for comparison. WD
--- NOTE | 2025-01-20 17:45 | DI.CT_ITS ---
Exam(s) CT ABDOMEN PELVIS W EXAM: CT ABDOMEN PELVIS W CLINICAL HISTORY: nausea. diarrhea. TECHNIQUE: Imaging Protocol: Axial computed tomography images with coronal and sagittal reformatted images were created and reviewed CONTRAST MATERIAL: Intravenous: Omnipaque 350 Contrast volume:100 ml Oral: no COMPARISON: CR CHEST 2 VIEWS PA,LAT from 10/31/2015 FINDINGS: ABDOMEN and PELVIS: Exam is somewhat limited by motion. Lung Bases: No acute findings. Basilar atelectasis/scarring Liver: Normal density. No suspicious mass. Gallbladder and biliary tract: Significant motion at this level no radiodense calculus. No wall thick ening or pericholecystic fluid. No biliary dilation. Pancreas: Normal density. No abnormal calcifications or inflammatory process. No evidence of mass. Spleen: Normal. Kidneys: Normal size, contour and axis. No radiodense stones. No obstructive uropathy. No suspicious masses seen. Adrenal glands: No masses seen. Vasculature: Abdominal aorta non-dilated. Soft tissues: Unremarkable. Bladder: No gross wall thickening. No calculi.No focal mass. Bowel: Stomach is nearly empty. No bowel obstruction. No bowel wall thickening. Appendix normal. N ormal quantity of stool. Peritoneal cavity: No ascites. No focal collection. No mesenteric inflammatory response. No free air . Bones: Degenerative changes of both hips. Degenerative changes in the lumbar spine. Reproductive organs: Unremarkable. Lymph nodes: No pathologically enlarged lymph nodes. IMPRESSION:: No acute abnormality in the abdomen or pelvis. RADIATION DOSE DELIVERED: Total DLP DATA REPOSITORY: All CT scans at this facility are submitted to the National Radiology Data Registry (NRDR) Dose Index Registry (DIR) with the [employer] (A[employer]). RADIATION OPTIMIZATION: All CT scans at this facility use at least one of these dose optimization te chniques: automated exposure control; mA and/or kV adjustment per patient size (includes targeted exa ms where dose is matched to clinical indication); or iterative reconstruction.
--- NOTE | 2025-01-20 17:53 | DI.RAD_ITS ---
Exam(s) XR PORTABLE CHEST AP EXAM: XR PORTABLE CHEST AP CLINICAL HISTORY: SOB TECHNIQUE: 2D digital imaging was performed. COMPARISON: CR CHEST 2 VIEWS PA,LAT from 10/31/2015 FINDINGS: LUNGS: Suboptimal pulmonary inflation. Linear atelectasis above the right diaphragm. Minimal linear scarring or atelectasis at the left lower lobe. No focal infiltrate. No pleural abnormality seen. HEART: Normal size. AORTA: Normal diameter. BONES: Unremarkable for age. Soft tissues: Unremarkable. IMPRESSION: No acute findings. DATA REPOSITORY: RADIATION DOSE DELIVERED:
[2025-01-20 17:55] VITALS: BP 124/75; PULSE 119; RESP 20; TEMP 36.7; O2SAT 92
--- NOTE | 2025-01-20 17:57 | W.ED.GENAD ---
Discharge Plan Disposition Patient Disposition: Home Condition: Stable Discharge Details Clinical Impression: Diabetes, Nausea, Vomiting Primary Care Provider: Aniceto Mobley ED Provider: Felicia Geiger Home Meds and New Rx's Prescriptions: No Action lisinopril 5 MG tablet 5 mg PO DAILY Patient Comments: dose unknown metformin 500 MG tablet extended release 24 hr 1,000 mg PO BID atorvastatin [Lipitor] 80 mg Tablet 80 mg PO QHS insulin glargine [Lantus U-100 Insulin] 100 unit/mL Solution 66 unit SUBCUT QHS Trulicity 1.5 mg/0.5 mL pen injector 1.5 mg SUBCUT DIRECTED Patient Comments: Inject 1/2 ml subcutaneously once a week sildenafil 25 mg tablet 25 mg PO DAILY PRN Patient Comments: TAKE 1 TO 4 TABLETS BY MOUTH APPROXIMATELY HALF AN HOUR PRIOR TO INTERCOURSE acetaminophen [Tylenol Extra Strength] 500 mg Tablet 500 mg PO Q6H PRN ibuprofen 200 mg Tablet 800 mg PO QID PRN Discharge Instructions Instructions: Diarrhea, Adult ED, Nausea and vomiting in adults Additional Instructions: Increase fluid intake. Recommend repeat laboratory studies in 1 week to recheck kidney function. You very well may have a viral illness at this time. If you should develop new or worsening symptoms, intractable fever, tractable vomiting, or abdominal pain that radiates to right lower quadrant please return for reevaluation. Referrals: Aniceto Mobley [Primary Care Provider] - 1 week Discharge Data Discharge Physician: Felicia Geiger [facility] General Date/Time Provider Initiated Documentation: 01/20/25 17:30. HPI Narrative: 44-year-old male with history of diabetes presents for evaluation of nausea, diarrhea, decreased appetite. Patient states that for the last 2 days he has had some nausea with diarrhea and decreased appetite. No vomiting. Denies any history of abdominal surgery. He has never had colonoscopy or endoscopy. No history of diverticulosis or diverticulitis. No increased urinary frequency, dysuria, gross hematuria. He was on antibiotics 2 months ago for respiratory infection. No history of C. difficile. He states that his blood sugars have been in the 200s. This is a little high for him given that he has not eaten today. His most recent hemoglobin A1c was greater than 9. It was the first time that he was less than 10. He also states that he has had some increased gas recently when eating processed meats which occasionally causes some chest discomfort. At time of my evaluation he does not have any nausea, chest discomfort, or abdominal pain. Denies any history of thyroid disease. Related Data Home Medications ?Medication ?Instructions ?Recorded ?Confirmed lisinopril 5 mg tablet 5 mg PO DAILY 04/02/16 01/20/25 metformin 500 mg tablet,extended 1,000 mg PO BID 08/12/16 01/20/25 release 24 hr acetaminophen 500 mg tablet 500 mg PO Q6H PRN 02/23/19 01/20/25 (Tylenol Extra Strength) ibuprofen 200 mg tablet 800 mg PO QID PRN 02/23/19 01/20/25 atorvastatin 80 mg tablet (Lipitor) 80 mg PO QHS 10/11/19 01/20/25 insulin glargine 100 unit/mL 66 unit subcut QHS 10/11/19 01/20/25 subcutaneous solution (Lantus U-100 Insulin) dulaglutide 1.5 mg/0.5 mL 1.5 mg subcut DIRECTED 03/21/23 01/20/25 subcutaneous pen injector (Trulicity) sildenafil 25 mg tablet 25 mg PO DAILY PRN 01/20/25 01/20/25 Allergies Allergy/AdvReac Type Severity Reaction Status Date / Time No Known Allergies Allergy Unverified 01/20/25 17:25 General Stated Complaint: [facility]Medical MOHAMUD: 3 Review of Systems Narrative: Remainder of review of systems otherwise negative except for as noted in the HPI x 10. Exam Narrative Exam Narrative: General: non-toxic, no respiratory distress, comfortable HEENT: normocephalic, atraumatic, lids and lashes normal, PERRL, EOMI, anicteric sclera, no conjunctival injection, moist oral mucosa Card: regular rate and rhythm, S1S2, no murmurs, rubs, or gallops Lungs: good air entry, clear to auscultation bilaterally. no wheezes, rales, rhonchi, or retractions Abd: soft, non-tender, non-distended, normal bowel sounds, no rebound or guarding, no peritoneal signs, no CVAT Musculoskeletal: full range of motion of arms and legs, no tenderness to palpation. no clubbing, cyanosis, or edema Neurologic: appropriate for age, strength normal Psych: alert and oriented Skin: no petechiae, no lesions, warm and dry Course Vital Signs Vital signs: Vital Signs Temperature 36.7 C 01/20/25 17:23 Pulse 119 H 01/20/25 17:23 Respiratory Rate 20 01/20/25 17:23 Blood Pressure 124/75 01/20/25 17:23 Pulse Oximetry 92 01/20/25 17:23 Temperature 36.7 C 01/20/25 17:55 Temperature Source Oral 01/20/25 17:55 Pulse 119 H 01/20/25 17:55 Respiratory Rate 20 01/20/25 17:55 Respiratory Effort Normal 01/20/25 17:55 Respiratory Depth Normal 01/20/25 17:55 Respiratory Pattern Normal 01/20/25 17:55 Blood Pressure 124/75 01/20/25 17:55 Blood Pressure Position Sitting 01/20/25 17:55 Pulse Oximetry 92 01/20/25 17:55 Oxygen Delivery Method Room Air 01/20/25 17:55 Oxygen Flow Rate 0 01/20/25 17:55 Pain Level 0 01/20/25 17:55 Medical Decision Making 44-year old male with history of diabetes presents for evaluation of nausea, diarrhea, fatigue and decreased appetite. Laboratory studies show some elevation of BUN and creatinine today. This may be secondary to some dehydration due to his recent illness. He does have mild elevation of his glucose. TSH is normal. Chest x-ray unremarkable. 2 troponins are flat. EKG did show some T wave inversions. There is no old EKG for comparison. Patient is made aware of these findings. I have recommended close follow-up with his primary care and he understands that he may require further cardiac workup as an outpatient. CT abdomen pelvis was unremarkable. Patient did not have any episodes of diarrhea while in the emergency department. Did receive IV fluids. Rapid influenza, COVID, RSV are negative. Patient understands that it is possible that he has a viral illness. I have encouraged increase oral intake at home. He understands that if he should develop any intractable fever, abdominal pain which migrates to the right lower quadrant, intractable vomiting, chest pain he should return immediately for reevaluation. Quality:SDOH Health Related Social Needs: No Data to Display PFSH All Active Problems (Updated 01/20/25 @ 20:33 by Felicia Geiger MD) Vomiting (Acute) Nausea (Acute) Diabetes (Chronic) Hordeolum (Acute) Cellulitis (Acute) Pain, dental (Acute) Medical History (Updated 01/20/25 @ 20:33 by Felicia Geiger MD) High blood pressure High cholesterol Diabetes Social History Smoking/Tobacco Use Status: Never Smoking risk assessment performed?: Yes Alcohol Intake: never Drug use: Never Substance use type: does not use Do you feel safe at home: Yes Do you feel safe in your relationship?: Yes
[2025-01-20 18:01] LABS: Abs Immature Grans 0.02 10^3/uL (0.0-0.06); Absolute Basophil Count 0.02 10^3/uL (0.0-0.2); Absolute Eosinophil Count 0.06 10^3/uL (0.0-0.7); Absolute Lymphocyte Count 0.91 10^3/uL (1.2-3.4); Absolute Monocyte Count 0.76 10^3/uL (0.1-0.8); Absolute Neutrophil Count 4.67 10^3/uL (1.2-6.7); Basophils % 0.3 %; Eosinophils % 0.9 %; HCT 47.6 % (40.0-50.0); HGB 15.5 g/dL (13.5-17.5); Immature Grans % 0.3 %; Lymphocytes % 14.1 %; MCH 28.7 pg (27.0-33.0); MCHC 32.6 % (32.0-36.0); MCV 88 fL (80-95); MPV 9.6 fL (8.0-11.0); Monocytes % 11.8 %; Neutrophils % 72.6 %; Platelet Count 251 10^3/uL (130-400); RDW 13.9 % (11.8-14.1); RDW-SD 44.6 fL; WBC 6.44 10^3/uL (4.4-10.8)
[2025-01-20] MEDS: Normal Saline 1,000 ML 1000 ML IV (18:03)
[2025-01-20 18:26] LABS: TSH (W/Ref FT4) 0.74 uIU/mL (0.36-3.74)
[2025-01-20 18:28] LABS: ALT 31 U/L (16-63); AST 20 U/L (15-37); Albumin 3.3 g/dL (3.4-5.0); Alkaline Phosphatase 143 U/L (46-116); BUN 46 mg/dL (7-18); CREATININE 1.4 mg/dL (0.70-1.30); Calcium 8.6 mg/dL (8.5-10.1); Chloride 104 mmol/L (98-107); Estimated GFR 63.17 (mL/min/1.73m2); Glucose 287 mg/dL (74-106); Lipase 44 U/L (<78); Magnesium 1.6 mg/dL; Potassium 4.7 mmol/L (3.5-5.1); Sodium 139 mmol/L (136-145); Total Protein 7.9 g/dL (6.4-8.2); Troponin I 12 ng/L (<or=76)
[2025-01-20] MEDS: Omnipaque 350 MG/ML 100 ML BTL IJ (18:39)
[2025-01-20] MEDS: Normal Saline - Diluent 50 ML VIAL IJ (18:40)
[2025-01-20 19:01] VITALS: BP 145/92; PULSE 109; O2SAT 100
[2025-01-20 19:41] LABS: Troponin I 15 ng/L (<or=76)
[2025-01-20 20:24] LABS: COVID-19 PCR Negative (Negative); Influenza A PCR Negative (Negative); Influenza B PCR Negative (Negative); RSV PCR Negative (Negative)
[2025-01-20 20:25] LABS: Source Nasopharynx
[2025-01-20 20:43] VITALS: BP 109/67; PULSE 73; RESP 16; TEMP 36.7; O2SAT 98
== END 2025-01-20 20:43 | disposition home or self-care (01) ==
PROVIDERS: Emergency Provider Emergency Medicine Emergency Medical Services; PCP Physician Assistant
DX: R11.0 Nausea (principal); E11.9 Type 2 diabetes mellitus without complications; R19.7 Diarrhea, unspecified; Z87.19 Personal history of other diseases of the digestive system
CPT/HCPCS: 80053; 83690; 87637; 93005; 96360; 96361; 99285; 71045; 74177; 83735; 84443; 84484; 85025; 93010; 99284; J3490

== ENCOUNTER 2025-02-11 16:09 | Outpatient (CLI) | payer OTHER, SELFPAY ==
[2025-02-11 16:15] LABS: ALT 29 U/L (16-63); AST 20 U/L (15-37); Albumin 3.2 g/dL (3.4-5.0); Alkaline Phosphatase 158 U/L (46-116); Anion Gap 6.8 mmol/L (3-11); BUN 12 mg/dL (7-18); Bilirubin, Total 0.4 mg/dL (0.2-1.0); CO2 30.2 mmol/L (21.0-32.0); CREATININE 0.7 mg/dL (0.70-1.30); Calcium 9.1 mg/dL (8.5-10.1); Chloride 106 mmol/L (98-107); Glucose 176 mg/dL (74-106); Potassium 3.7 mmol/L (3.5-5.1); Sodium 143 mmol/L (136-145); Total Protein 7.7 g/dL (6.4-8.2)
[2025-02-14 11:27] LABS: Factor 5 Assay 98 % (62-139)
[2025-02-16 11:20] LABS: Protein C, Functional >150 % (71-199); Protein S, Functional 127 % (73-156)
== END 2025-02-11 16:10 | disposition home or self-care (01) ==
LOC: LBO 16:10
PROVIDERS: PCP Physician Assistant; Visit Provider Physician Assistant
DX: H47.099 Other disorders of optic nerve, not elsewhere classified, unspecified eye (principal)
CPT/HCPCS: 36415; 80053; 85306; 85303

== ENCOUNTER 2025-04-01 00:07 | Outpatient (CLI) | payer OTHER, SELFPAY ==
--- NOTE | 2025-04-01 | DI.MRI_ITS ---
Exam(s) MR BRAIN WO/W EXAM: MR BRAIN WO/W CLINICAL HISTORY: ABN CT, OPTIC NERVE EDEMA, R93.0, H47.10 TECHNIQUE: Multiplanar multisequence MRI of the brain was performed. Both noninfused and contrast i nfused sequences were performed. Additional pituitary sequences were performed IV Contrast injected was 20 cc Dotarem. COMPARISON: CT CT HEAD WO/W from 02/28/2025 CT scan of 02/28/2025 was reviewed. FINDINGS: CEREBRAL PARENCHYMA: No evidence of intracranial hemorrhage, mass effect nor shift of midline structu re. No extraaxial fluid collections. Ventricles are not enlarged nor shifted. There is no significant focal signal abnormality in the cerebellar hemispheres nor within the madi, m idbrain, and thalami. There is no abnormal signal abnormality in the periventricular white matter. No masses in the cerebellopontine angles. DWI: No areas of restricted diffusion to suggest acute ischemic event. SWI: No microhemorrhages evident. There are no ring enhancing lesions in the brain. There is no abnormal meningeal enhancement. PITUITARY GLAND/CAVERNOUS SINUSES: No mass nor parasellar abnormality. No obvious abnormality in the cavernous sinuses. There is no significant asymmetry of the cavernous sinuses on this MRI exam, as s uggested on the recent CT scan. FLOW VOIDS: The expected flow void are noted. No evidence of obvious aneurysm nor obvious vascular ma lformation. PARANASAL SINUSES: The visualized paranasal sinuses appear unremarkable. ORBITS: Prior left side cataract surgery. No other orbital findings nor findings in the retro conal compartments of the orbits IMPRESSION: 1. No significant intracranial findings on this MRI scan of the brain. 2. No abnormal enhancing intracranial findings. There are no ring enhancing lesions in the brain and there is no abnormal meningeal enhancement. 3. No significant findings in the pituitary gland and cavernous sinuses. 4. Orbits appear unremarkable with the exception of evidence of prior cataract surgery on the left s nirmala.. DATA REPOSITORY:
[2025-04-01] MEDS: Gadoterate meglumine 20 ML SYRINGE IVP (08:57)
[2025-04-01] MEDS: Normal Saline Flush 10 ML SYR IVP (08:57)
== END 2025-04-01 00:27 ==
LOC: DI 00:07
PROVIDERS: PCP Physician Assistant; Visit Provider Ophthalmology
DX: H47.10 Unspecified papilledema (principal); R93.0 Abnormal findings on diagnostic imaging of skull and head, not elsewhere classified; R51.9 Headache, unspecified; H34.8122 Central retinal vein occlusion, left eye, stable
CPT/HCPCS: 70553